=== PATIENT | male | born 1970 | race Caucasian/White ===

== ENCOUNTER → 2019-12-31 07:37 | Outpatient (CLI) | payer OTHER, SELFPAY ==
[2019-12-31 09:19] LABS: Add Manual Diff / Slide Review NO; Basophils Absolute Auto 0 /uL (0-100); Basophils Percent Auto 0.7 % (0-2); Eosinophils Absolute Auto 600 /uL (0-450); Eosinophils Percent Auto 8.8 % (2-4); Hematocrit 42.8 % (41-53); Hemoglobin 14.6 g/dL (13.5-17.5); Lymphocytes Absolute Auto 1800 /uL (1100-4500); Lymphocytes Percent Auto 29.3 % (25-40); Mean Corpuscular HGB Conc 34.2 % (30-36); Mean Corpuscular Hemoglobin 30.5 PG (26-34); Mean Corpuscular Volume 89.3 fL (80-100); Monocytes Absolute Auto 800 /uL (0-900); Monocytes Percent Auto 12.8 % (3-14); Neutrophils Absolute Auto 3000 /uL (1500-7000); Neutrophils Percent Auto 48.4 % (50-75); Platelet Count 230 X10^3/uL (150-400); Red Cell Distribution Width 12.9 % (11.6-14.8); White Blood Cell Count 6.3 X10^3/uL (4.5-11.0)
[2019-12-31 09:45] LABS: Alanine Aminotransferase 40 IU/L (<50); Albumin 4.3 g/dL (3.5-5.0); Albumin Globulin Ratio 1.4 (1.0-2.8); Alkaline Phosphatase 57 U/L (38-126); Aspartate Aminotransferase 41 IU/L (17-59); BUN Creatinine Ratio 16.2 (6-22); Bilirubin Total 0.7 mg/dL (0.2-1.3); Blood Urea Nitrogen 16 mg/dL (9-20); Calcium 9.4 mg/dL (8.4-10.2); Carbon Dioxide 31 mmol/L (22-32); Chloride 103 mmol/L (98-107); Cholesterol 165 mg/dL (140-199); Estimated Glomerular Filt Rate > 60.0 mL/min (>60); Glucose 113 mg/dL (70-100); HDL Cholesterol 60 mg/dL (40-60); HEMOLYSIS < 15 (0-50); LDL Cholesterol Calculated 90 mg/dL (<100); Potassium 4.7 mmol/L (3.4-5.1); Sodium 139 mmol/L (137-145); Total Protein 7.3 g/dL (6.3-8.2); Triglycerides 73 mg/dL (35-150)
[2019-12-31 10:15] LABS: Prostate Specific Antigen Scrn 0.371 ng/mL (0.1-4.0)
== END ==
PROVIDERS: PCP Family Medicine; Referring Provider Family Medicine; Visit Provider Family Medicine
DX: R03.0 Elevated blood-pressure reading, without diagnosis of hypertension (principal); R35.1 Nocturia; Z13.220 Encounter for screening for lipoid disorders
CPT/HCPCS: 36415; 80053; 80061; 85025; G0103

== ENCOUNTER → 2020-01-03 09:18 | Outpatient (CLI) | payer OTHER, SELFPAY ==
[2020-01-03 10:42] LABS: Free T3, Triiodothyronine Free 3.68 pg/mL (2.77-5.27); Free T4, Direct Thyroxine 1.05 ng/dL (0.78-2.19)
[2020-01-03 10:56] LABS: Thyroid Stimulating Hormone 1.36 uIU/mL (0.47-4.68)
== END ==
PROVIDERS: PCP Family Medicine; Referring Provider Family Medicine; Visit Provider Family Medicine
DX: E04.1 Nontoxic single thyroid nodule (principal)
CPT/HCPCS: 36415; 84439; 84443; 84481

== ENCOUNTER → 2020-03-18 09:26 | Outpatient (CLI) | payer OTHER, SELFPAY ==
[2020-03-18 10:41] LABS: COVID19 -Nasal RAPID Negative (Negative)
== END ==
PROVIDERS: PCP Family Medicine; Visit Provider Surgery
DX: Z11.59 Encounter for screening for other viral diseases (principal); Z12.11 Encounter for screening for malignant neoplasm of colon; Z01.812 Encounter for preprocedural laboratory examination
CPT/HCPCS: 87635; C9803

== ENCOUNTER 2020-03-19 13:46 | Day surgery (SDC) | payer OTHER, SELFPAY ==
[2020-03-19 14:08] VITALS: BP 131/89; PULSE 84; RESP 18; TEMP 36.3; O2SAT 96; BMI 26.6
[2020-03-19] MEDS: LACTATED RINGERS 1,000 ML 200 ML IV (14:20)
--- NOTE | 2020-03-19 15:05 | P.HP_ITS ---
History of Present Illness History of Present Illness Date Patient Seen: 03/19/20 Time Patient Seen: 15:05 Chief complaint: SDC Narrative: The patient presents for colorectal sreening. They have never had any previous examination for such. No personal or family history of colon cancer. On further history denies any recent gastrointestinal symptoms. No nausea, vomiting, abdominal pain, loss of appetite, unexplained weight loss, change in bowel habits, diarrhea, constipation, melena, hematochezia, or bright red blood per rectum. Patient History Medical History Allergies (Chronic) Ankle pain (Chronic ~2009) Arthralgia (Acute) Asthma (Chronic) Borderline hypertension (Acute) Chicken pox (Resolved ~1974) Chronic back pain (Chronic ~2017) Foot pain (Chronic ~2009) Fractures (Resolved ~1987) Gout (Inactive ~2009) Nocturia (Acute) Screen for colon cancer (Acute) Screening for hyperlipidemia (Acute) Sebaceous cyst (Acute) Shoulder pain (Chronic ~2009) Sleep apnea (Chronic) Thyroid nodule (Acute) Surgical History Anesthesia (Resolved) History of hernia surgery (Resolved ~02/2019) History of surgery on arm (Resolved ~1987) Family & Social History Social History: household members significant other Tobacco & Substance use: Tobacco type smokeless tobacco Smoking Status Current every day smoker alcohol intake current alcohol intake frequency a few times a week Substance Use Type does not use Meds Home Medications and Allergies Home Medications Medication Instructions Recorded Confirmed Type febuxostat 40 mg tablet 40 mg PO DAILY 01/03/20 03/19/20 History loratadine 10 mg tablet 10 mg PO DAILY 01/03/20 03/19/20 History albuterol sulfate 90 mcg/actuation 2 puff INHALATION Q6H PRN #8.5 gram 03/03/20 03/19/20 Rx aerosol inhaler atorvastatin 40 mg tablet 40 mg PO DAILY #90 tab 03/03/20 03/19/20 Rx bupropion HCl 150 mg 24 hr tablet, 150 mg PO QAM #90 tab 03/03/20 03/19/20 Rx extended release fluticasone propionate 50 1 inhalation INHALATION BID #60 03/03/20 03/19/20 Rx mcg/actuation blister powder for each inhalation Allergies Allergy/AdvReac Type Severity Reaction Status Date / Time NSAIDS (Non-Steroidal Allergy Severe Anaphylaxis Verified 01/03/20 08:52 Anti-Inflamma Review of Systems Review of Systems Narrative: A 10 point review of systems is negative except as noted in the HPI Exam Vital Signs (past 8 hours): - 03/19/20 14:08 Temperature 97.4 F L Pulse Rate 84 Respiratory Rate 18 Blood Pressure 131/89 Pulse Oximetry 96 Oxygen Delivery Method Room Air Narrative Exam Narrative: General-no acute distress, well nourished HEENT-moist mucous membranes, no scleral icterus Neck-supple, no lymphadenopathy Chest- non labored respirations, clear to auscultation bilaterally Cardiac-regular rate no peripheral edema Abdomen-soft, nontender, non distended Extremities-warm, well perfused Neurological-alert and oriented, no focal deficits Assessment & Plan Assessment & Plan narrative: The patient requires colorectal screening and colonoscopy is recommended. Technical details were discussed. Risks, benefits, alternatives explained. Risks including but not limited to myocardial infarction, aspiration, bleeding, pain, missed lesion, incomplete examination, need for further radiographic studies, colonic perforation, and need for major abdominal surgery were discussed. All questions were answered to their satisf action, and they are in agreement with this plan.
[2020-03-19] MEDS: fentaNYL 250 MCG/5 ML INJ IV (15:15)
[2020-03-19] MEDS: MIDAZOLAM 5 MG/5 ML VIAL IV (15:15)
--- NOTE | 2020-03-19 15:42 | P.OP.ENDO_ITS ---
Operative Date/Time/Diagnoses Date of procedure: 03/19/20 Time of procedure: 15:42 Pre-op diagnosis: screening colonoscopy Post-op diagnosis: other (normal colonoscopy) Procedure & Clinicians Study performed: colonoscopy Same procedure as scheduled: Yes Indications: 50-year-old male no past colonoscopy presents for routine screening Surgeon: Shaun Bowen Procedure Notes SCOAP/Timeout: Performed Procedure in detail: Medications: Conscious sedation using 5mg IV midazolam and 150mcg IV of fentanyl The history and physical was performed/updated and the patient is ASA class is 2. The procedure was discussed in detail with the patient. Potential risks complications including infection, bleeding, missed diagnosis, perforation, need for surgery, and were explained. Their questions were answered and [email or web address] consent was obtained. Patient was brought to the procedure room and placed standard monitoring equipment. The patient's vital signs were monitored continuously throughout the entire procedure. Prior to starting time-out was performed. The ablation patient was placed in the left lateral recumbent position. Procedural sedation was administered. Examination began with a thorough inspection of the perianal area there was no evidence of fissures, fistulae, external hemorrhoids or cutaneous malignancy. The colonoscopy scope was then placed into the anal canal and was advanced to the cecum, which was identified by the ileocecal valve, the appendiceal orifice and the confluence of the taenia. The scope was then slowly withdrawn examining colon thoroughly in all directions, irrigating it of any residual stool. No masses or polyps The patient tolerated the procedure well. They will be discharged once criteria are met. The prep was of good/excellent quality. The withdrawl time was * minutes. The sedation time was * minutes. Scope withdrawal time: 7 Sedation minutes: 27 Specimen(s): none sent Complications: none Impression: Normal colonoscopy Post-procedure Recommendations: Colonscopy in 10 years Disposition: same day surgery
[2020-03-19 15:44] VITALS: BP 124/77; PULSE 81; RESP 16; TEMP 36.7; O2SAT 97
[2020-03-19 15:49] VITALS: BP 121/88; PULSE 77; RESP 16; O2SAT 97
[2020-03-19 16:04] VITALS: BP 113/84; PULSE 77; RESP 20; TEMP 36.2; O2SAT 96
== END 2020-03-19 16:15 | disposition home or self-care (01) ==
PROVIDERS: PCP Family Medicine; Referring Provider Surgery; Visit Provider Surgery
PROC: 0DJD8ZZ Inspection of Lower Intestinal Tract, Via Natural or Artificial Opening Endoscopic (ICD-10-PCS; CPT 45378; principal; 2020-03-19 14:30)
DX: Z12.11 Encounter for screening for malignant neoplasm of colon (principal); J45.909 Unspecified asthma, uncomplicated; G47.30 Sleep apnea, unspecified
CPT/HCPCS: 45378; 99152; 99153; J2250; J3010

== ENCOUNTER → 2021-10-15 08:31 | Outpatient (CLI) | payer BC, SELFPAY ==
[2021-10-15 08:57] LABS: Add Manual Diff / Slide Review NO; Basophils Absolute Auto 0 /uL (0-100); Basophils Percent Auto 0.9 % (0-2); Eosinophils Absolute Auto 300 /uL (0-450); Eosinophils Percent Auto 6.2 % (2-4); Hematocrit 41.7 % (41-53); Hemoglobin 14.2 g/dL (13.5-17.5); Lymphocytes Absolute Auto 1700 /uL (1100-4500); Lymphocytes Percent Auto 33.1 % (25-40); Mean Corpuscular HGB Conc 34.1 % (30-36); Mean Corpuscular Hemoglobin 30.4 PG (26-34); Mean Corpuscular Volume 89.1 fL (80-100); Monocytes Absolute Auto 800 /uL (0-900); Monocytes Percent Auto 14.4 % (3-14); Neutrophils Absolute Auto 2400 /uL (1500-7000); Neutrophils Percent Auto 45.4 % (50-75); Platelet Count 235 X10^3/uL (150-400); Red Blood Cell Count 4.68 X10^6/uL (4.5-5.9); Red Cell Distribution Width 12.8 % (11.6-14.8); White Blood Cell Count 5.2 X10^3/uL (4.5-11.0)
[2021-10-15 10:42] LABS: Alanine Aminotransferase 35 IU/L (<50); Albumin 4.5 g/dL (3.5-5.0); Albumin Globulin Ratio 1.5 (1.0-2.8); Alkaline Phosphatase 46 U/L (38-126); Aspartate Aminotransferase 35 IU/L (17-59); BUN Creatinine Ratio 9.4 (6-22); Bilirubin Total 0.5 mg/dL (0.2-1.3); Blood Urea Nitrogen 9 mg/dL (9-20); Carbon Dioxide 32 mmol/L (22-32); Chloride 102 mmol/L (98-107); Cholesterol 157 mg/dL (140-199); Estimated Glomerular Filt Rate > 60 mL/min (>60); Globulin 3.1 g/dL (1.7-4.1); Glucose 101 mg/dL (70-100); HDL Cholesterol 48 mg/dL (40-60); HEMOLYSIS < 15 (0-50); LDL Cholesterol Calculated 95 mg/dL (<100); Potassium 4.7 mmol/L (3.4-5.1); Sodium 140 mmol/L (137-145); Total Protein 7.6 g/dL (6.3-8.2); Triglycerides 68 mg/dL (35-150)
[2021-10-15 11:05] LABS: Prostate Specific Antigen Scrn 0.674 ng/mL (0.1-4.0)
== END ==
PROVIDERS: PCP Family Medicine; Referring Provider Family Medicine; Visit Provider Family Medicine
DX: E78.5 Hyperlipidemia, unspecified (principal); R03.0 Elevated blood-pressure reading, without diagnosis of hypertension; Z12.5 Encounter for screening for malignant neoplasm of prostate
CPT/HCPCS: 36415; 80053; 80061; 85025; G0103

== ENCOUNTER → 2022-10-13 07:20 | Outpatient (CLI) | payer BC, SELFPAY ==
[2022-10-13 08:18] LABS: Add Manual Diff / Slide Review NO; Basophils Absolute Auto 100 /uL (0-100); Basophils Percent Auto 1.2 % (0-2); Eosinophils Absolute Auto 600 /uL (0-450); Eosinophils Percent Auto 10.8 % (2-4); Hematocrit 40.5 % (41-53); Lymphocytes Absolute Auto 1800 /uL (1100-4500); Lymphocytes Percent Auto 30.9 % (25-40); Mean Corpuscular HGB Conc 34.5 % (30-36); Mean Corpuscular Hemoglobin 30.8 PG (26-34); Mean Corpuscular Volume 89.2 fL (80-100); Monocytes Absolute Auto 700 /uL (0-900); Monocytes Percent Auto 12.7 % (3-14); Neutrophils Absolute Auto 2600 /uL (1500-7000); Neutrophils Percent Auto 44.4 % (50-75); Platelet Count 199 X10^3/uL (150-400); Red Blood Cell Count 4.54 X10^6/uL (4.5-5.9); Red Cell Distribution Width 12.8 % (11.6-14.8); White Blood Cell Count 5.8 X10^3/uL (4.5-11.0)
[2022-10-13 08:58] LABS: Alanine Aminotransferase 42 IU/L (<50); Albumin 4.2 g/dL (3.5-5.0); Albumin Globulin Ratio 1.4 (1.0-2.8); Alkaline Phosphatase 49 U/L (38-126); Aspartate Aminotransferase 34 IU/L (17-59); BUN Creatinine Ratio 17.6 (6-22); Bilirubin Total 0.5 mg/dL (0.2-1.3); Blood Urea Nitrogen 16 mg/dL (9-20); Carbon Dioxide 31 mmol/L (22-32); Chloride 101 mmol/L (98-107); Cholesterol 153 mg/dL (140-199); Estimated Glomerular Filt Rate > 60 mL/min (>60); Globulin 2.9 g/dL (1.7-4.1); Glucose 109 mg/dL (70-100); HDL Cholesterol 44 mg/dL (40-60); HEMOLYSIS < 15 (0-50); LDL Cholesterol Calculated 91 mg/dL (<100); Potassium 4.3 mmol/L (3.4-5.1); Sodium 139 mmol/L (137-145); Total Protein 7.1 g/dL (6.3-8.2); Triglycerides 89 mg/dL (35-150)
[2022-10-13 09:18] LABS: Prostate Specific Antigen Scrn 0.433 ng/mL (0.1-4.0)
== END ==
PROVIDERS: PCP Family Medicine; Referring Provider Family Medicine; Visit Provider Family Medicine
DX: E78.5 Hyperlipidemia, unspecified (principal); R03.0 Elevated blood-pressure reading, without diagnosis of hypertension; Z12.5 Encounter for screening for malignant neoplasm of prostate
CPT/HCPCS: 36415; 80053; 80061; 85025; G0103

== ENCOUNTER → 2022-10-21 09:33 | Outpatient (CLI) | payer BC, SELFPAY ==
[2022-10-27 07:17] LABS: Percent Free Testosterone 2.97 % (1.50-4.20); Testosterone Free 5.72 ng/dL (5.00-21.00); Testosterone Total 192.5 ng/dL (264.0-916.0)
== END ==
PROVIDERS: PCP Family Medicine; Referring Provider Family Medicine; Visit Provider Family Medicine
DX: D64.9 Anemia, unspecified (principal); R53.83 Other fatigue
CPT/HCPCS: 36415; 84402; 84403

== ENCOUNTER → 2023-01-27 09:45 | Outpatient (CLI) | payer BC, SELFPAY ==
[2023-01-27 11:30] LABS: Add Manual Diff / Slide Review NO; Basophils Absolute Auto 100 /uL (0-100); Basophils Percent Auto 1.1 % (0-2); Eosinophils Absolute Auto 400 /uL (0-450); Eosinophils Percent Auto 7.1 % (2-4); Hematocrit 42.1 % (41-53); Hemoglobin 14.2 g/dL (13.5-17.5); Lymphocytes Absolute Auto 1700 /uL (1100-4500); Mean Corpuscular HGB Conc 33.7 % (30-36); Mean Corpuscular Hemoglobin 30.4 PG (26-34); Mean Corpuscular Volume 90.3 fL (80-100); Monocytes Absolute Auto 600 /uL (0-900); Monocytes Percent Auto 10.8 % (3-14); Neutrophils Absolute Auto 2600 /uL (1500-7000); Platelet Count 224 X10^3/uL (150-400); Red Blood Cell Count 4.66 X10^6/uL (4.5-5.9); Red Cell Distribution Width 12.7 % (11.6-14.8); White Blood Cell Count 5.3 X10^3/uL (4.5-11.0)
[2023-01-27 11:54] LABS: Cholesterol 164 mg/dL (140-199); HDL Cholesterol 56 mg/dL (40-60); LDL Cholesterol Calculated 98 mg/dL (<100); Triglycerides 51 mg/dL (35-150)
[2023-02-12 18:36] LABS: Percent Free Testosterone 3.36 % (1.50-4.20); Testosterone Free 8.56 ng/dL (5.00-21.00); Testosterone Total 254.7 ng/dL (264.0-916.0)
== END ==
PROVIDERS: PCP Family Medicine; Referring Provider Family Medicine; Visit Provider Family Medicine
DX: D64.9 Anemia, unspecified (principal); E78.5 Hyperlipidemia, unspecified; R79.89 Other specified abnormal findings of blood chemistry
CPT/HCPCS: 36415; 80061; 84402; 84403; 85025

== ENCOUNTER → 2023-12-15 12:19 | Outpatient (CLI) | payer BC, SELFPAY | PROVIDERS: PCP Family Medicine; Visit Provider Physician Assistant Surgical | DX: R30.0 Dysuria (principal) | CPT/HCPCS: 87086 ==

== ENCOUNTER → 2023-12-22 09:50 | Outpatient (CLI) | payer BC, SELFPAY ==
[2023-12-22 10:27] LABS: Add Manual Diff / Slide Review NO; Basophils Absolute Auto 0 /uL (0-100); Eosinophils Absolute Auto 300 /uL (0-450); Eosinophils Percent Auto 7.2 % (2-4); Hematocrit 42.5 % (41-53); Hemoglobin 14.2 g/dL (13.5-17.5); Lymphocytes Absolute Auto 1500 /uL (1100-4500); Lymphocytes Percent Auto 31.5 % (25-40); Mean Corpuscular HGB Conc 33.4 % (30-36); Mean Corpuscular Hemoglobin 30.4 PG (26-34); Monocytes Absolute Auto 600 /uL (0-900); Monocytes Percent Auto 11.8 % (3-14); Neutrophils Absolute Auto 2300 /uL (1500-7000); Neutrophils Percent Auto 48.5 % (50-75); Platelet Count 197 X10^3/uL (150-400); Red Blood Cell Count 4.67 X10^6/uL (4.5-5.9); Red Cell Distribution Width 12.9 % (11.6-14.8); White Blood Cell Count 4.8 X10^3/uL (4.5-11.0)
[2023-12-22 10:43] LABS: Alanine Aminotransferase 25 IU/L (<50); Albumin 4.5 g/dL (3.5-5.0); Albumin Globulin Ratio 1.5 (1.0-2.8); Alkaline Phosphatase 45 U/L (38-126); Aspartate Aminotransferase 35 IU/L (17-59); BUN Creatinine Ratio 12.1 (6-22); Bilirubin Total 0.8 mg/dL (0.2-1.3); Blood Urea Nitrogen 11 mg/dL (9-20); Calcium 9.4 mg/dL (8.4-10.2); Carbon Dioxide 26 mmol/L (22-32); Chloride 105 mmol/L (98-107); Cholesterol 167 mg/dL (140-199); Estimated Glomerular Filt Rate > 60 mL/min (>60); Globulin 3.1 g/dL (1.7-4.1); Glucose 109 mg/dL (70-100); HDL Cholesterol 51 mg/dL (40-60); HEMOLYSIS < 15 (0-50); LDL Cholesterol Calculated 105 mg/dL (<100); Potassium 4.3 mmol/L (3.4-5.1); Sodium 139 mmol/L (137-145); Total Protein 7.6 g/dL (6.3-8.2); Triglycerides 57 mg/dL (35-150)
[2023-12-22 10:56] LABS: Vitamin D 25 Hydroxy (D3) 29.5 ng/mL (30.0-100.0)
[2023-12-22 11:10] LABS: Prostate Specific Antigen Scrn 0.513 ng/mL (0.1-4.0)
[2023-12-26 07:41] LABS: Percent Free Testosterone 2.93 % (1.50-4.20)
== END ==
PROVIDERS: PCP Family Medicine; Referring Provider Family Medicine; Visit Provider Family Medicine
DX: Z12.5 Encounter for screening for malignant neoplasm of prostate (principal); D64.9 Anemia, unspecified; E78.5 Hyperlipidemia, unspecified; R03.0 Elevated blood-pressure reading, without diagnosis of hypertension; R79.89 Other specified abnormal findings of blood chemistry; R53.83 Other fatigue; E55.9 Vitamin D deficiency, unspecified
CPT/HCPCS: 36415; 80053; 80061; 82306; 84402; 84403; 85025; G0103

== ENCOUNTER → 2024-01-09 06:57 | Outpatient (CLI) | payer BC, SELFPAY ==
--- NOTE | 2024-01-09 06:58 | DI.US.S_ITS ---
PROCEDURE: US SCROTUM INDICATIONS: SCROTAL PAIN WITH ASSOCIATED INGUINAL PAIN TECHNIQUE: Real-time scanning was performed of the scrotum and testicles, with image documentation. Color and pulse Doppler interrogation was performed of both testicles. COMPARISON: None. FINDINGS: Right: Testicle is normal in size at 4.4 x 2.2 x 3.1 cm, and homogenous in echotexture. Epididymis is normal in overall size and morphology. Minimal right-sided hydrocele. No varicocele. Overlying scrotal skin is normal in thickness. No right inguinal hernia. Left: Testicle is normal in size at 4.4 x 2.5 x 3.1 cm, and homogeneous in echotexture. Epididymis is normal in overall size and morphology. Minimal left hydrocele. No varicocele. Overlying scrotal skin is normal in thickness. Left inguinal mesh is in place from prior inguinal hernia repair Doppler: Color and pulse Doppler demonstrate normal and symmetric arterial flow in both testicles. IMPRESSION: Unremarkable bilateral testicular sonogram. Dictated by: Kirk Pederson M.D. on 01/09/2024 at 13:47 Approved by: Kirk Pederson M.D. on 01/09/2024 at 13:49
== END ==
PROVIDERS: PCP Family Medicine; Referring Provider Family Medicine; Visit Provider Family Medicine
DX: N50.819 Testicular pain, unspecified (principal); K40.91 Unilateral inguinal hernia, without obstruction or gangrene, recurrent; R10.30 Lower abdominal pain, unspecified; Z87.19 Personal history of other diseases of the digestive system; Z98.890 Other specified postprocedural states
CPT/HCPCS: 76870; 93975

== ENCOUNTER → 2024-06-14 07:40 | Outpatient (CLI) | payer BC, SELFPAY ==
[2024-06-14 08:00] LABS: Hematocrit 43.5 % (41-53); Hemoglobin 14.6 g/dL (13.5-17.5)
[2024-06-14 08:41] LABS: Follicle Stimulating Hormone 2.31 mIU/mL; Luteinizing Hormone 0.692 mIU/mL
[2024-06-14 08:56] LABS: Prostate Specific Antigen 0.846 ng/mL (0.10-4.00)
[2024-06-15 09:12] LABS: Sex Hormone Binding Globulin 19.1 nmol/L (19.3-76.4)
== END ==
PROVIDERS: PCP Family Medicine; Referring Provider Internal Medicine Endocrinology, Diabetes & Metabolism; Visit Provider Internal Medicine Endocrinology, Diabetes & Metabolism
DX: R79.89 Other specified abnormal findings of blood chemistry (principal)
CPT/HCPCS: 36415; 83001; 83002; 84146; 84153; 84270; 84402; 84403; 85014; 85018

== ENCOUNTER → 2024-07-26 08:40 | Outpatient (CLI) | payer BC, SELFPAY ==
--- NOTE | 2024-07-26 08:41 | DI.MRI.S_ITS ---
PROCEDURE: MR BRAIN (PITUITARY) WWO CON INDICATIONS: LOW SERUM LH/LOW TESTOSTERONE TECHNIQUE: Noncontrast sagittal and axial FLAIR, axial gradient echo, axial diffusion and ADC through the brain. Thin-slice sagittal and coronal T1 spin echo, coronal T2 fast spin echo through the pituitary. After the administration contrast, optional dynamic coronal T1 spin echo, thin-slice coronal and sagittal T1 spin echo images through the pituitary fossa; axial and coronal and sagittal T1 spin echo with fat saturation through the brain. COMPARISON: None. FINDINGS: Image quality: Excellent. Pituitary Gland: Pituitary gland has normal size and contour. Posterior pituitary bright spot is normally situated. Pituitary gland demonstrates normal postcontrast enhancement without areas of relative delayed enhancement. The optic chiasm facet Ms. Midline with normal thickness and normal postcontrast enhancement. No suprasellar masses. The optic chiasm is normal. Cavernous sinus demonstrates normal postcontrast enhancement. CSF Spaces: Ventricles are normal in size and shape. Basal cisterns are patent. No extra-axial fluid collections. Brain: No intracranial bleeds or mass effects. There is minimal, diffuse cerebral volume loss. There are minimal periventricular and subcortical white matter chronic microvascular ischemic changes. No abnormal intracranial enhancement. [place]-white matter interface is intact. Diffusion weighted images demonstrate no acute ischemic insults. Brainstem is normal. Normal intravascular flow voids are present. Skull and face: Calvarial marrow is normal in signal. Orbits appear normal. Sinuses: Mucous retention cyst versus polyp in the left maxillary sinus. The mastoids are clear. IMPRESSION: No pituitary microadenoma demonstrated. No acute intracranial disease process. Dictated by: Anisa Larson MD, PhD on 07/26/2024 at 11:45 Approved by: Anisa Larson MD, PhD on 07/26/2024 at 11:50
== END ==
PROVIDERS: PCP Family Medicine; Referring Provider Internal Medicine Endocrinology, Diabetes & Metabolism; Visit Provider Internal Medicine Endocrinology, Diabetes & Metabolism
DX: R79.89 Other specified abnormal findings of blood chemistry (principal)
CPT/HCPCS: 70553; A9579

== ENCOUNTER → 2024-08-06 08:15 | Outpatient (CLI) | payer BC, SELFPAY ==
[2024-08-06 09:26] LABS: Iron 146 ug/dL (49-181)
[2024-08-06 09:56] LABS: Ferritin 141 ng/mL (18-464)
== END ==
PROVIDERS: PCP Family Medicine; Referring Provider Physician Assistant; Visit Provider Physician Assistant
DX: G47.33 Obstructive sleep apnea (adult) (pediatric) (principal); G25.81 Restless legs syndrome; D50.9 Iron deficiency anemia, unspecified
CPT/HCPCS: 36415; 82728; 83540

== ENCOUNTER → 2024-12-05 07:10 | Outpatient (CLI) | payer BC, SELFPAY ==
--- NOTE | 2024-12-05 07:12 | DI.MRI.S_ITS ---
PROCEDURE: MR SHOULDER RT WO CON INDICATIONS: Rotator cuff tear, pain TECHNIQUE: Noncontrast oblique coronal T2 fast spin echo with fat saturation, oblique sagittal T1 spin echo and T2 fast spin echo with fat saturation, axial T1 spin echo and T2 fast spin echo with fat saturation through the shoulder. COMPARISON: None. FINDINGS: Image quality: Excellent. Some images are limited by patient motion artifacts. Rotator cuff: Moderate diffuse increased T2 weighted signal with areas of thinning of the mid and distal supraspinatus tendon and associated increased subacromial/subdeltoid bursal fluid suggests tendinopathy with partial tear predominantly anterior aspect. Increased T2 weighted signal and thickening of the distal subscapularis tendon, suspected partial tear. Mild tendinopathy of the distal infraspinatus with increased T2 weighted signal and thickening without tear or retraction. Teres minor is normal. Bones and bursae: Moderate degenerative changes of the acromioclavicular joint with joint space narrowing, subchondral edema, osteophytes. Degenerative changes of the glenohumeral joint with mild subchondral edema, diffuse cartilage thinning. Capsule and soft tissues: Suspected [place] complex cord-like middle glenohumeral ligament with thickening and increased T2 weighted signal. Moderate diffuse degenerative thinning of the glenoid labrum without distinct focal tear. Increased T2 weighted signal and thickening of the distal biceps tendon and biceps anchor, tendinopathy without full-thickness tear. There is some thinning of the biceps tendon midportion and mild increased fluid in the biceps tendon sheath suggests tendinopathy. IMPRESSION: Degenerative changes glenohumeral and acromioclavicular joint. Tendinopathy and partial tears of the rotator cuff most notably of the supraspinatus and to a lesser degree subscapularis and infraspinatus. Biceps tendinopathy, tenosynovitis. Dictated by: Shayne Blancas M.D. on 12/05/2024 at 14:23 Approved by: Shayne Blancas M.D. on 12/05/2024 at 14:51
== END ==
PROVIDERS: PCP Family Medicine; Referring Provider Family Medicine; Visit Provider Orthopaedic Surgery
DX: M75.111 Incomplete rotator cuff tear or rupture of right shoulder, not specified as traumatic (principal); M65.911 Unspecified synovitis and tenosynovitis, right shoulder; M25.511 Pain in right shoulder
CPT/HCPCS: 73221

== ENCOUNTER → 2025-02-24 07:46 | Outpatient (CLI) | payer BC, SELFPAY ==
[2025-02-24 08:20] LABS: Hematocrit 42.4 % (41-53); Hemoglobin 14.4 g/dL (13.5-17.5)
[2025-02-24 08:37] LABS: Alanine Aminotransferase 25 IU/L (<50); Albumin 4.4 g/dL (3.5-5.0); Albumin Globulin Ratio 1.4 (1.0-2.8); Alkaline Phosphatase 48 U/L (38-126); Blood Urea Nitrogen 9 mg/dL (9-20); Calcium 9.2 mg/dL (8.4-10.2); Carbon Dioxide 29 mmol/L (22-32); Chloride 101 mmol/L (98-107); Estimated Glomerular Filt Rate > 60 mL/min (>60); Globulin 3.1 g/dL (1.7-4.1); Glucose 111 mg/dL (70-99); HEMOLYSIS < 15 (0-50); Potassium 4.0 mmol/L (3.4-5.1); Sodium 139 mmol/L (137-145); Total Protein 7.5 g/dL (6.3-8.2)
[2025-02-24 09:05] LABS: Prostate Specific Antigen 0.869 ng/mL (0.10-4.00)
== END ==
PROVIDERS: PCP Family Medicine; Referring Provider Family Medicine; Visit Provider Internal Medicine Endocrinology, Diabetes & Metabolism
DX: R79.89 Other specified abnormal findings of blood chemistry (principal); Z12.5 Encounter for screening for malignant neoplasm of prostate
CPT/HCPCS: 36415; 80053; 84153; 84402; 84403; 85014; 85018